=== PATIENT | male | born 1980 | race Hispanic/Latino ===

== ENCOUNTER 2020-07-17 14:09 | Emergency (ER) | payer OTHER ==
[2020-07-17 14:14] VITALS: BP 127/70
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
== END 2020-07-17 17:57 | disposition home or self-care (01) ==
LOC: ED 14:09
DX: S63.501A Unspecified sprain of right wrist, initial encounter (principal); S69.91XA Unspecified injury of right wrist, hand and finger(s), initial encounter; Z79.899 Other long term (current) drug therapy; X58.XXXA Exposure to other specified factors, initial encounter; Y93.89 Activity, other specified; Y92.89 Other specified places as the place of occurrence of the external cause; Y99.8 Other external cause status

== ENCOUNTER 2020-11-03 08:56 | Emergency (ER) | payer OTHER ==
[2020-11-03] MEDS ORDERED: SODIUM CHLORIDE 0.9% 1000 ML 1,000 ML IV ONE (09:07)
[2020-11-03] MEDS ORDERED: KETOROLAC 30 MG/1 ML INJ IV ONE ×2 (09:07→11:25)
--- NOTE | 2020-11-03 09:10 | Emergency Department Report ---
ED Abdominal Pain HPI - General Chief Complaint: Abdominal Pain Stated Complaint: CONSTIPATED Time Seen by Provider: 11/03/20 09:08 Source: patient Mode of arrival: Ambulatory Limitations: No Limitations - History of Present Illness Initial Comments: 40-year-old male presents to the ER today with complaints of constipation and left lower quadrant abdominal pain. Patient states that he has been having symptoms of constipation for the past 5 days. He states that this is not typical for him. He states that his gave him some urhc-jql-veimnfl laxa tive tea without much improvement of his symptoms. He states that he only had 2 very small bowel movements and his stool was hard like pellets. He denies any bleeding,or mucus in the stool. He states that he vomited a couple times Tuesday but this has since resolved. He denies any continued nausea. He denies any rectal pain or rectal swelling. He denies any abdominal surgeries. MD Complaint: abdominal pain -: Gradual (5) - Related Data Previous Rx's Medication Instructions Recorded Last Taken Type Diclofenac Sodium 50 mg PO TID PRN #21 tablet. 07/17/20 Unknown Rx Amoxicillin/Potassium Clav 1 each PO Q12HR #14 tablet 11/03/20 Unknown Rx [Augmentin 875-125 Tablet] Ibuprofen [Motrin] 800 mg PO Q8HR PRN #30 tablet 11/03/20 Unknown Rx Ondansetron [Zofran Odt] 4 mg PO Q8HR PRN #15 tab.rapdis 11/03/20 Unknown Rx Allergies Allergy/AdvReac Type Severity Reaction Status Date / Time No Known Allergies Allergy Verified 11/03/20 08:59 ED Review of Systems ROS: Stated complaint: CONSTIPATED Other details as noted in HPI Comment: All other systems reviewed and negative Gastrointestinal: abdominal pain, nausea, vomiting, constipation. denies: iker rrhea, hematemesis, melena, hematochezia Genitourinary: denies: urgency, dysuria Musculoskeletal: denies: back pain, joint swelling, arthralgia Skin: denies: rash, lesions, change in color, change in hair/nails, pruritus Neurological: denies: headache, weakness, numbness, paresthesias, confusion, ab normal gait, vertigo Psychiatric: denies: anxiety, depression ED Past Medical Hx - Past Medical History Previous Medical History?: No - Surgical History Additional Surgical History: back - Social History Smoking Status: Current Some Day Smoker Substance Use Type: None - Medications Home Medications: Home Medications Medication Instructions Recorded Confirmed Last Taken Type Diclofenac Sodium 50 mg PO TID PRN #21 tablet.dr 07/17/20 Unknown Rx Amoxicillin/Potassium Clav 1 each PO Q12HR #14 tablet 11/03/20 Unknown Rx [Augmentin 875-125 Tablet] Ibuprofen [Motrin] 800 mg PO Q8HR PRN #30 tablet 11/03/20 Unknown Rx Ondansetron [Zofran Odt] 4 mg PO Q8HR PRN #15 tab.rapdis 11/03/20 Unknown Rx ED Physical Exam - General Limitations: No Limitations General appearance: alert, in no apparent distress - Head Head exam: Present: atraumatic, normocephalic, normal inspection - Eye Eye exam: Present: normal appearance, PERRL, EOMI Pupils: Present: normal accommodation - ENT ENT exam: Present: normal exam, mucous membranes moist - Respiratory Respiratory exam: Present: normal lung sounds bilaterally. Absent: respiratory distress - Cardiovascular Cardiovascular Exam: Present: regular rate, normal rhythm, normal heart sounds - GI/Abdominal GI/Abdominal exam: Present: soft, distended, tenderness (Moderate left lower quadrant some mild guarding). Absent: rebound - Back Exam Back exam: Present: normal inspection - Neurological Exam Neurological exam: Present: alert, oriented X3, CN II-XII intact, normal gait - Psychiatric Psychiatric exam: Present: normal affect, normal mood - Skin Skin exam: Present: intact ED Course Vital Signs 11/03/20 11/03/20 11/03/20 09:00 11:31 12:01 Temperature 98 F Pulse Rate 66 Respiratory 18 18 18 Rate Blood Pressure 117/63 O2 Sat by Pulse 97 Oximetry ED Medical Decision Making - Lab Data Result diagrams: 11/03/20 09:55 11/03/20 09:55 - Radiology Data Radiology results: report reviewed Patient: PELON RUTLEDGE MR#: [id number] : 1980 Acct:[id number] Age/Sex: 40 / M ADM Date: 11/03/20 Loc: ED Attending Dr: Ordering Physician: CARLOS POLLARD Date of Service: 11/03/20 Procedure(s): CT abdomen pelvis w con Accession Number(s): [id number] cc: CARLOSJAZLYN JUSTICEMLEY CT ABDOMEN AND PELVIS WITH CONTRAST INDICATION / CLINICAL INFORMATION: Left lower quadrant pain. TECHNIQUE: Axial CT images were obtained through the abdomen and pelvis after IV contrast. All CT scans at this location are performed using CT dose reduction for ALARA by means of automated exposure control. COMPARISON: None available. FINDINGS: LOWER CHEST: No significant abnormality LIVER: No significant abnormality GALLBLADDER/BILIARY TREE: No significant abnormality PANCREAS: No significant abnormality SPLEEN: No significant abnormality ADRENALS: No significant abnormality KIDNEYS / URETER: No significant abnormality URINARY BLADDER: No significant abnormality REPRODUCTIVE ORGANS: No significant abnormality STOMACH / SMALL BOWEL: Stomach and small bowel are normal in caliber. No evidence of bowel inflammation. COLON: There is inflammatory stranding associated diverticulosis at the junction of the descending and sigmoid colon. No extraluminal gas or organized fluid collection is detected. Remainder the colon is unremarkable. Appendix is normal. LYMPH NODES: No significant adenopathy. VASCULATURE: No significant abnormality. OTHER: No free air, free fluid, or focal fluid collection is identified. SKELETAL SYSTEM: No acute osseous findings. IMPRESSION: Acute uncomplicated diverticulitis at the junction of the descending and sigmoid colon. Signer Name: Ben Tobin MD Signed: 11/03/2020 1:24 PM Workstation Name: [id number] Transcribed By: LEIGHA Dictated By: BEN TOBIN MD Electronically Authenticated By: BEN TOBIN MD Signed Date/Time: 11/03/20 1324 DD/ 1321 TD/TT: - Medical Decision Making 1408: CT abdomen pelvis shows acute diverticulitis without any complication. CBC, CMP and urinalysis unremarkable. Patient currently resting comfortably and does not appear to be in any acute distress. He is not toxic, is not ill- appearing, is neurologically intact with a normal gait. Discussed CT and lab results with patient. At this time patient is stable enough for outpatient treatment with antibiotics for his diverticulitis. Recommend follow-up with his primary care doctor and/or GI specialist but discussed worsening signs and symptoms with patient and that he needs to return to the ED ER immediately if any of the signs and symptoms develop. Patient expressed understanding of instructions and agree with plan. Patient was stable at time of discharge Critical care attestation.: If time is entered above; I have spent that time in minutes in the direct care of this critically ill patient, excluding procedure time. ED Disposition Clinical Impression: Acute diverticulitis Disposition: TO HOME OR SELFCARE Is pt being admited?: No Does the pt Need Aspirin: No Condition: Stable Instructions: Diverticulitis, [id number] Additional Instructions: Take the Augmentin, the Zofran and the Motrin as prescribed. Follow-up with your primary care doctor this week. Return to the ER immediately if your abdominal pain worsens, you unable to tolerate your antibiotic due to nausea and vomiting or you develop a fever of 100.5 or higher. Prescriptions: Amoxicillin/Potassium Clav [Augmentin 875-125 Tablet] 1 each PO Q12HR #14 tablet Ibuprofen [Motrin] 800 mg PO Q8HR PRN #30 tablet PRN Reason: Pain Ondansetron [Zofran Odt] 4 mg PO Q8HR PRN #15 tab.rapdis PRN Reason: Nausea Referrals: LEON NIXON MD [Staff Physician] - 3-5 Days Forms: Work/School Release Form(ED) Time of Disposition: 13:34
[2020-11-03 10:33] LABS: Bilirubin,Urine NEG (Negative); Blood,Urine NEG (Negative); Color,Urine Yellow (Yellow); Mucus,Urine FEW /HPF; Protein,Urine <15 mg/dL mg/dL (Negative); Urobilinogen,Urine < 2.0 mg/dL (<2.0)
[2020-11-03 10:42] LABS: Basophils % (Auto) 0.5 % (0.0-1.8); Eosinophils # (Auto) 0.1 K/mm3 (0.0-0.4); Eosinophils % (Auto) 2.2 % (0.0-4.3); Hematocrit 43.1 % (35.5-45.6); Hemoglobin 14.3 gm/dl (11.8-15.2); Lymphocytes # (Auto) 1.8 K/mm3 (1.2-5.4); Lymphocytes % (Auto) 36.4 % (13.4-35.0); Mean Corpuscular HGB Conc 33 % (32-34); Mean Corpuscular Volume 88 fl (84-94); Monocytes # (Auto) 0.5 K/mm3 (0.0-0.8); Monocytes % (Auto) 9.9 % (0.0-7.3); Platelet Count 147 K/mm3 (140-440); Red Cell Distribution Width 13.7 % (13.2-15.2)
[2020-11-03 12:01] LABS: Alanine Aminotransferase 15 units/L (7-56); Albumin 4.3 g/dL (3.9-5); Blood Urea Nitrogen 18 mg/dL (9-20); Calcium 9.5 mg/dL (8.4-10.2); Hemolysis Index 8
[2020-11-03 12:12] LABS: BUN/Creatinine Ratio 26; Bilirubin,Direct < 0.2 mg/dL (0-0.2)
--- NOTE | 2020-11-03 13:28 | Cat Scan Report ---
CT ABDOMEN AND PELVIS WITH CONTRAST INDICATION / CLINICAL INFORMATION: Left lower quadrant pain. TECHNIQUE: Axial CT images were obtained through the abdomen and pelvis after IV contrast. All CT sc ans at this location are performed using CT dose reduction for ALARA by means of automated exposure c ontrol. COMPARISON: None available. FINDINGS: LOWER CHEST: No significant abnormality LIVER: No significant abnormality GALLBLADDER/BILIARY TREE: No significant abnormality PANCREAS: No significant abnormality SPLEEN: No significant abnormality ADRENALS: No significant abnormality KIDNEYS / URETER: No significant abnormality URINARY BLADDER: No significant abnormality REPRODUCTIVE ORGANS: No significant abnormality STOMACH / SMALL BOWEL: Stomach and small bowel are normal in caliber. No evidence of bowel inflammati on. COLON: There is inflammatory stranding associated diverticulosis at the junction of the descending an d sigmoid colon. No extraluminal gas or organized fluid collection is detected. Remainder the colon i s unremarkable. Appendix is normal. LYMPH NODES: No significant adenopathy. VASCULATURE: No significant abnormality. OTHER: No free air, free fluid, or focal fluid collection is identified. SKELETAL SYSTEM: No acute osseous findings. IMPRESSION: Acute uncomplicated diverticulitis at the junction of the descending and sigmoid colon. Signer Name: Vimal Tobin MD Signed: 11/03/2020 1:24 PM Workstation Name: [id number]
[2020-11-03] MEDS ORDERED: AMOXICILLIN/K CLAV 875/125MG TAB PO ONE (13:36)
[2020-11-03 16:36] VITALS: BP 128/80
== END 2020-11-03 14:00 | disposition home or self-care (01) ==
LOC: ED 08:56
DX: K57.92 Diverticulitis of intestine, part unspecified, without perforation or abscess without bleeding (principal); F17.200 Nicotine dependence, unspecified, uncomplicated; Z79.899 Other long term (current) drug therapy
CPT/HCPCS: 36415; 74177; 80048; 80076; 81001; 83690; 85025; 96361; 96374; 99284; J1885; J7030; Q9967